=== PATIENT | female | born 1995 | race Caucasian/White ===

== ENCOUNTER 2017-02-11 19:31 | Emergency (ER) | payer OTHER | END 2017-02-11 20:52 | disposition home or self-care (01) | LOC: ERS 19:31 | DX: J11.1 Influenza due to unidentified influenza virus with other respiratory manifestations (principal) | CPT/HCPCS: 87804; 99283 ==

== ENCOUNTER 2017-05-12 10:46 | Day surgery (SDC) | payer OTHER ==
[2017-05-11 13:06] VITALS: BMI 176.9
[2017-05-12] MEDS ORDERED: Midazolam HCl 2 mg/2 ml Vial ONE ×2 (12:27→12:37)
[2017-05-12] MEDS ORDERED: Fentanyl 100 MCG/2 ML VIAL ONE ×6 (12:38→16:22)
[2017-05-12] MEDS ORDERED: Lidocaine 1% (PF) 30 ML VIAL ONE (12:59)
[2017-05-12] MEDS ORDERED: CEFAZOLIN/Water 2 GM/20 ML SYRINGE ONE (13:03)
[2017-05-12] MEDS ORDERED: Bupivacaine PF 0.5% 30 ML VIAL ONE (13:34)
[2017-05-12] MEDS ORDERED: Diprivan 20 ML ONE (14:21)
[2017-05-12] MEDS ORDERED: Meperidine HCl/PF 25 MG/ML VIAL ONE (15:22)
--- NOTE | 2017-05-12 15:43 | RAD ---
INTRAOPERATIVE IMAGING OF THE RIGHT ANKLE: Date: 05-12-17 Comparison: Right ankle radiographs, 04-01-16 History: Hardware removal. FINDINGS: Two coned down intraoperative images of the right ankle demonstrate evidence of hardware removal invo lving the lateral aspect of the distal right fibula/lateral malleolus as well as the lateral aspect o f the distal right tibia and medial malleolus. IMPRESSION: Hardware removal as detailed above. POS: CHARO
[2017-05-12] MEDS ORDERED: HYDROcodone/Acetaminophen 5/325 mg Tablet ONE (17:44)
--- NOTE | 2017-05-13 11:46 | OP ---
DATE OF SURGERY: 05/12/2017 PREOPERATIVE DIAGNOSIS: Symptomatic retained hardware, right distal tibia and fibula. POSTOPERATIVE DIAGNOSIS: Symptomatic retained hardware, right distal tibia and fibula. SURGICAL PROCEDURE: Removal of symptomatic retained hardware, right distal tibia and fibula. ANESTHESIA: General. SURGEON: Bossman Short M.D. OIL WELL DRILLER: Jeffrey Law PA-C TOURNIQUET TIME: Approximately 1 hour at 300 mmHg. SPECIMEN: Explanted hardware given to patient. COMPLICATIONS: None. DRAINS: None. SPECIMENS: None. OUTCOME: Satisfactory. INDICATIONS: The patient is a 21-year-old lady status post intra-articular distal tibia fracture and distal fibular fracture treated with open reduction internal fixation. The patient has now healed b oth fractures, but is having symptoms from the retained hardware with presumed impingement at the dis carri tib-fib joint posteriorly from the retained plate. After discussion with patient and her mother, we have decided to proceed with removal of hardware. Informed consent has been obtained. All quest ions answered. DESCRIPTION OF PROCEDURE: The patient was brought to the operating room and a timeout performed foll owed by induction of general anesthesia. The patient was placed in a supine position and a sterile p rep and drape was performed of the right lower extremity. Next, an incision was made just posterior to the lateral malleolus after skin was sharply incised, dissection was carried down bluntly exposing the plate of the distal fibula. The screws were removed from the plate and the plate removed withou t difficulty. Next, using the same skin incision, the deeper dissection was carried out posterior to the peroneal tendons and muscle bellies. This led to the exposure of the muscle belly of the flexor hallucis longus. Using blunt dissection, this muscle belly was split, gaining access to the deeper posterolateral plate. This plate then had the screws removed and then removed as well. At the compl etion of this, the wound was thoroughly irrigated with normal saline and then closed in layers with 0 Vicryl for fascial closure followed by 2-0 Vicryl and aliyah for the skin. Next, attention was gatito joaquina at the medial malleolus. A small skin incision was made overlying the single medial malleolar sc rew. After skin was sharply incised, dissection was carried down bluntly and then the screw was thai gretchen without difficulty. This wound was closed with the single skin layer. Next, a Xeroform gauze, W ebril, and Eric wrap dressing was applied to the ankle and tourniquet was let down and the patient tra nsferred to recovery room in stable condition. There were no complications. She tolerated the proce dure well.
== END 2017-05-12 18:12 | disposition home or self-care (01) ==
LOC: SDC 10:46
PROVIDERS: ATTEND Orthopaedic Surgery
PROC: 0SPF04Z Removal of Internal Fixation Device from Right Ankle Joint, Open Approach (ICD-10-PCS; principal; 2017-05-12)
DX: T84.84XA Pain due to internal orthopedic prosthetic devices, implants and grafts, initial encounter (principal); Z79.899 Other long term (current) drug therapy; Z98.890 Other specified postprocedural states
CPT/HCPCS: 76001; 96374; J2001; J2175; J2250; J2704; J3010; S0020